=== PATIENT | male | born 1960 | race African-American/Black ===

== ENCOUNTER 2021-12-25 12:24 | Emergency (ER) | payer SELFPAY ==
[2021-12-25] MEDS ORDERED: Fluorescein Opthalmic Strip ONE (12:50)
[2021-12-25] MEDS ORDERED: Tetracaine 0.5% PF 4 ML BOT ONE (12:50)
== END 2021-12-25 13:15 | disposition home or self-care (01) ==
LOC: BURERS 12:24
DX: S05.02XA Injury of conjunctiva and corneal abrasion without foreign body, left eye, initial encounter (principal); F17.210 Nicotine dependence, cigarettes, uncomplicated
CPT/HCPCS: 99283